=== PATIENT | female | born 1965 | race Caucasian/White ===

== ENCOUNTER 2017-09-25 11:58 | Emergency (ER) | payer MEDICAID, OTHER, SELFPAY ==
[~2017-09-25] VITALS: Ht 157.5 cm; Wt 93.5 kg
[2017-09-25 12:03] VITALS: BP 154/98
== END 2017-09-25 13:06 | disposition left against medical advice (07) ==
LOC: ED 12:15
DX: M54.9 Dorsalgia, unspecified (principal); Z53.21 Procedure and treatment not carried out due to patient leaving prior to being seen by health care provider